=== PATIENT | male | born 1955 | race Asian ===

== ENCOUNTER 2020-12-15 11:32 | Outpatient (REF) | payer OTHER, SELFPAY ==
[2020-12-15 11:53] LABS: COVID-19 Test Negative (Negative); IDNOW Serial# 55D5AD1C
== END 2020-12-15 11:33 | disposition home or self-care (01) ==
LOC: HO.EMPCOV 11:32
PROVIDERS: Visit Provider Internal Medicine
DX: Z20.822 Contact with and (suspected) exposure to COVID-19 (principal)
CPT/HCPCS: 36415; 87635; C9803

== ENCOUNTER 2021-04-30 10:12 | Outpatient (REF) | payer MEDICARE, SELFPAY ==
[2021-04-30 10:46] LABS: MANUAL DIFF FLAG NO
[2021-04-30 10:51] LABS: Basophils Absolute Auto 0.1 X10*3/uL (0.0-0.2); Basophils Percent Auto 0.9 % (0-2); Eosinophils Absolute Auto 0.4 X10*3/uL (0.0-0.4); Eosinophils Percent Auto 6.1 % (0-4); Hematocrit 44.9 % (42-52); Imm Gran Abs Auto 0.01 X10*3/uL (0.00-0.03); Imm Gran Pct Auto 0.2 % (0.0-0.4); Lymphocytes Absolute Auto 2.3 X10*3/uL (1.2-4.9); Lymphocytes Percent Auto 41.1 % (20-40); Mean Corpuscular HGB Conc 33.4 g/dl (31.0-36.0); Mean Corpuscular Hemoglobin 30.5 pg (27.0-33.0); Mean Corpuscular Volume 91.4 fL (80-98); Mean Platelet Volume 10.2 fL (9.4-12.4); Monocytes Absolute Auto 0.7 X10*3/uL (0.1-1.2); Monocytes Percent Auto 11.4 % (2-11); Neutrophils Absolute Auto 2.3 X10*3/uL (2.0-8.3); Neutrophils Percent Auto 40.3 % (45-73); Platelet Count 185 X10*3/uL (160-400); Red Blood Count 4.91 X10*6/uL (4.60-5.80); Red Cell Distribution Width 13.6 % (11.0-16.0); White Blood Count 5.7 X10*3/uL (4.8-10.8)
[2021-04-30 11:24] LABS: Glucose Urine UA NEG (NEG); Leukocyte Esterase Urine NEG (NEG); Nitrite Urine NEG (NEG); PH 5.5 (5.0-8.0); Specific Gravity - Urine >= 1.030 (1.005-1.025); Urine Blood NEG (NEG); Urine Ketones NEG (NEG); Urine Protein NEG (NEG-TRACE)
[2021-04-30 11:28] LABS: Appearance Urine CLEAR; Color Urine YELLOW
[2021-04-30 11:37] LABS: Erythrocyte Sedimentation Rate 4 MM/HR (0-15)
[2021-04-30 11:43] LABS: Alanine Aminotransferase 21 U/L (0-40); Albumin Level 4.4 g/dL (3.5-5.0); Alkaline Phosphatase 77 U/L (39-117); Anion Gap 12 (12-20); Aspartate Amino Transferase 24 U/L (5-37); Blood Urea Nitrogen 21 mg/dL (9-16); Calcium 9.3 mg/dL (8.4-10.2); Carbon Dioxide 26 mmol/L (22-29); Chloride 107 mmol/L (96-108); Cholesterol 144 mg/dL; Estimated Glomerular Filt Rate > 60; Glucose Random 99 mg/dL (60-115); HDL Cholesterol 53 mg/dL; Iron 69 mcg/dL (45-160); LDL Cholesterol Calculated 82 mg/dl; Percent Iron Saturation 22 % (15-50); Potassium 4.6 mmol/L (3.3-5.1); Sodium 140 mmol/L (135-145); Total Iron Binding Capacity 313 mcg/dL (228-428); Total Protein 7.3 g/dL (6.5-8.0); Triglycerides 47 mg/dL; Unsaturated Iron Binding 244 ug/dL
[2021-04-30 11:57] LABS: TSH reflex Free T4 7.69 uIU/mL (0.32-4.0); Vitamin D 25-OH Total 12.7 ng/mL (>30)
[2021-04-30 12:32] LABS: Free T4 (Free Thyroxine) 0.74 ng/dL (0.71-1.85)
== END 2021-04-30 10:13 | disposition home or self-care (01) ==
LOC: HO.LAB 10:12
PROVIDERS: PCP Internal Medicine; Visit Provider Internal Medicine
DX: R53.83 Other fatigue (principal); I25.10 Atherosclerotic heart disease of native coronary artery without angina pectoris; E78.5 Hyperlipidemia, unspecified
CPT/HCPCS: 36415; 80053; 80061; 81003; 82306; 83540; 84439; 84443; 85025; 85652

== ENCOUNTER 2021-10-20 14:58 | Outpatient (REF) | payer MEDICARE, SELFPAY ==
[2021-10-20 15:28] LABS: COVID-19 Test Negative (Negative)
== END 2021-10-20 14:59 | disposition home or self-care (01) ==
LOC: HO.LAB 14:58
PROVIDERS: Visit Provider Internal Medicine
DX: Z20.822 Contact with and (suspected) exposure to COVID-19 (principal)
CPT/HCPCS: 36415; 87635; C9803

== ENCOUNTER 2022-05-02 13:40 | Outpatient (REF) | payer MEDICARE, SELFPAY ==
--- NOTE | ~2022-05-02 | MR_ITS ---
EXAMINATION: MR SHOULDER WITHOUT CONTRAST, RIGHT CLINICAL INFORMATION: Right shoulder pain. Evaluate rotator cuff tear. COMPARISON: None TECHNIQUE: MRI of the shoulder without contrast was performed on a high-field scanner. FINDINGS: ROTATOR CUFF: Mild supraspinatus tendinosis. 3 x 5 mm intrasubstance in the insertional anterior fibers. There is mild articular surface fraying more proximally in the anterior fibers. No full-thickness tear is seen. Infraspinatus, teres minor is intact. Intact subscapularis tendon. No muscle atrophy or fatty infiltration. BICEPS: Mild biceps tendinosis, with longitudinal partial tearing of the tendon as it courses in the bicipital groove with attenuated caliber. CORACOACROMIAL ARCH: The undersurface of the acromion is curved with no subacromial spur. Moderate acromioclavicular arthritis. Small fluid in the subacromial subdeltoid space. LABRUM/CAPSULE: Superior labral degeneration with free edge fraying. Small caliber posterior labrum, with posterosuperior labral degenerative fraying/tear. Inferior capsule is intact. GLENOHUMERAL JOINT/MARROW: No fracture. Subcortical cyst in the lesser tuberosity. Small joint fluid. MR/MR shoulder RT wo con IMPRESSION: 1. Mild supraspinatus tendinosis. 3 x 5 mm intrasubstance tear in the insertional anterior fibers. Mild undersurface fraying in the anterior fibers. 2. Mild biceps tendinosis with longitudinal partial tearing of the tendon as it courses in the bicipital groove. 3. Superior labral degeneration with free edge fraying. Posterior labral attenuation with posterosuperior labral degenerative fraying/tear. 4. Moderate acromioclavicular arthritis.
== END 2022-05-02 13:41 | disposition home or self-care (01) ==
LOC: HO.MRI 13:40
PROVIDERS: PCP Internal Medicine; Visit Provider Psychiatry & Neurology Neurology
DX: M75.101 Unspecified rotator cuff tear or rupture of right shoulder, not specified as traumatic (principal)
CPT/HCPCS: 73221

== ENCOUNTER 2022-07-18 11:26 | Outpatient (REF) | payer MEDICARE, SELFPAY ==
[2022-07-18 11:40] LABS: MANUAL DIFF FLAG NO
[2022-07-18 11:56] LABS: Basophils Absolute Auto 0.1 X10*3/uL (0.0-0.2); Basophils Percent Auto 1.4 % (0-2); Eosinophils Absolute Auto 0.4 X10*3/uL (0.0-0.4); Eosinophils Percent Auto 7.1 % (0-4); Hematocrit 46.3 % (42.0-52.0); Hemoglobin 15.4 g/dl (14.0-18.0); Imm Gran Abs Auto 0.01 X10*3/uL (0.00-0.03); Imm Gran Pct Auto 0.2 % (0.0-0.4); Lymphocytes Absolute Auto 2.2 X10*3/uL (1.2-4.9); Lymphocytes Percent Auto 43.6 % (20-40); Mean Corpuscular HGB Conc 33.3 g/dl (31.0-36.0); Mean Corpuscular Hemoglobin 30.6 pg (27.0-33.0); Mean Corpuscular Volume 91.9 fL (80.0-98.0); Mean Platelet Volume 9.9 fL (9.4-12.4); Monocytes Absolute Auto 0.6 X10*3/uL (0.1-1.2); Neutrophils Absolute Auto 1.7 x10*3/uL (2.0-8.3); Neutrophils Percent Auto 34.7 % (45-73); Platelet Count 183 X10*3/uL (160-400); Red Blood Count 5.04 X10*6/uL (4.60-5.80); Red Cell Distribution Width 13.5 % (11.0-16.0); White Blood Count 4.9 X10*3/uL (4.8-10.8)
[2022-07-18 12:36] LABS: Erythrocyte Sedimentation Rate 6 MM/HR (0-15)
[2022-07-18 12:37] LABS: Alanine Aminotransferase 19 U/L (0-40); Albumin Level 4.3 g/dL (3.5-5.0); Alkaline Phosphatase 79 U/L (39-117); Anion Gap 13 (12-20); Aspartate Amino Transferase 22 U/L (5-37); Bilirubin Direct 0.2 mg/dL (0.0-0.5); Bilirubin Total 0.6 mg/dL (0.0-1.0); Blood Urea Nitrogen 18 mg/dL (9-16); Calcium 9.3 mg/dL (8.4-10.2); Carbon Dioxide 27 mmol/L (22-29); Chloride 106 mmol/L (96-108); Cholesterol 162 mg/dL; Estimated Glomerular Filt Rate > 60; Glucose Random 99 mg/dL (60-115); HDL Cholesterol 49 mg/dL; LDL Cholesterol Calculated 98 mg/dl; Potassium 4.8 mmol/L (3.3-5.1); Sodium 141 mmol/L (135-145); Total Protein 7.3 g/dL (6.5-8.0); Triglycerides 75 mg/dL
[2022-07-18 12:46] LABS: Thyroid Stimulating Hormone 11.18 uIU/mL (0.32-4.0)
[2022-07-18 13:17] LABS: T4 Thyroxine 5.2 ug/dL (4.5-12.0)
[2022-07-19 12:07] LABS: Free Prostate Spec Ag 0.3 ng/mL; Percent Free Prostate Spec Ag 38 % (calc) (>25); Prostate Specific Ag Total 0.8 ng/mL (< OR = 4.0)
[2022-07-25 12:02] LABS: Testosterone, Total 978 ng/dL (250-1100)
== END 2022-07-18 11:27 | disposition home or self-care (01) ==
LOC: HO.LAB 11:26
PROVIDERS: PCP Internal Medicine; Visit Provider Internal Medicine
DX: Z12.5 Encounter for screening for malignant neoplasm of prostate (principal); E03.9 Hypothyroidism, unspecified; R42 Dizziness and giddiness; D64.9 Anemia, unspecified
CPT/HCPCS: 36415; 80053; 80061; 82248; 84154; 84403; 84436; 84443; 85025; 85652

== ENCOUNTER 2023-11-24 15:21 | Outpatient (REF) | payer OTHER, SELFPAY ==
[2023-11-24 15:31] LABS: MANUAL DIFF FLAG NO
[2023-11-24 15:40] LABS: Basophils Absolute Auto 0.1 X10*3/uL (0.0-0.2); Basophils Percent Auto 1.3 % (0-2); Eosinophils Absolute Auto 0.6 X10*3/uL (0.0-0.4); Eosinophils Percent Auto 9.2 % (0-4); Hematocrit 45.7 % (42.0-52.0); Hemoglobin 15.4 g/dl (14.0-18.0); Imm Gran Abs Auto 0.01 X10*3/uL (0.00-0.03); Imm Gran Pct Auto 0.2 % (0.0-0.4); Lymphocytes Absolute Auto 2.2 X10*3/uL (1.2-4.9); Lymphocytes Percent Auto 36.6 % (20-40); Mean Corpuscular HGB Conc 33.7 g/dl (31.0-36.0); Mean Corpuscular Hemoglobin 31.1 pg (27.0-33.0); Mean Corpuscular Volume 92.3 fL (80.0-98.0); Mean Platelet Volume 10.5 fL (9.4-12.4); Monocytes Absolute Auto 0.7 X10*3/uL (0.1-1.2); Monocytes Percent Auto 11.4 % (2-11); Neutrophils Absolute Auto 2.5 x10*3/uL (2.0-8.3); Neutrophils Percent Auto 41.3 % (45-73); Platelet Count 152 X10*3/uL (160-400); Red Blood Count 4.95 X10*6/uL (4.60-5.80); Red Cell Distribution Width 13.5 % (11.0-16.0)
[2023-11-24 16:03] LABS: Alanine Aminotransferase 20 U/L (0-40); Albumin Level 4.4 g/dL (3.5-5.0); Alkaline Phosphatase 75 U/L (39-117); Anion Gap 10 (12-20); Aspartate Amino Transferase 21 U/L (5-37); Bilirubin Total 1.1 mg/dL (0.0-1.0); Blood Urea Nitrogen 17 mg/dL (9-16); Calcium 9.5 mg/dL (8.4-10.2); Carbon Dioxide 26 mmol/L (22-29); Chloride 107 mmol/L (96-108); Cholesterol 145 mg/dL (<200); Estimated Glomerular Filt Rate > 60; Glucose Random 89 mg/dL (60-115); HDL Cholesterol 51 mg/dL (>40); LDL Cholesterol Calculated 81 mg/dL (<100); Potassium 4.3 mmol/L (3.3-5.1); Sodium 139 mmol/L (135-145); Total Protein 7.6 g/dL (6.5-8.0); Triglycerides 67 mg/dL (<150)
[2023-11-24 16:24] LABS: Prostate Specific Antigen 0.93 ng/mL (<0.05-4.0)
[2023-12-02 17:24] LABS: Testosterone, Free 95.7 pg/mL (35.0-155.0); Testosterone, Total 679 ng/dL (250-1100)
== END 2023-11-24 15:22 | disposition home or self-care (01) ==
LOC: HO.LAB 15:21
PROVIDERS: PCP Internal Medicine; Visit Provider Internal Medicine
DX: Z12.5 Encounter for screening for malignant neoplasm of prostate (principal); I25.10 Atherosclerotic heart disease of native coronary artery without angina pectoris; E78.5 Hyperlipidemia, unspecified
CPT/HCPCS: 36415; 80053; 80061; 84153; 84402; 84403; 85025

== ENCOUNTER 2023-12-28 11:24 | Outpatient (REF) | payer OTHER, SELFPAY ==
[2023-12-28 13:08] LABS: T4 Thyroxine 5.2 ug/dL (4.5-12.0); Thyroid Stimulating Hormone 10.51 uIU/mL (0.32-4.0)
[2023-12-29 10:28] LABS: Triiodothyronine T3 Free 3.5 pg/mL (2.3-4.2)
== END 2023-12-28 11:25 | disposition home or self-care (01) ==
LOC: HO.LAB 11:24
PROVIDERS: PCP Internal Medicine; Visit Provider Psychiatry & Neurology Neurology
DX: E03.9 Hypothyroidism, unspecified (principal)
CPT/HCPCS: 36415; 84436; 84443; 84481

== ENCOUNTER 2024-01-01 06:42 | Day surgery (SDC) | payer OTHER, SELFPAY ==
--- NOTE | 2023-12-29 09:18 | HO.ANESPROP2 ---
HPI - Anesthesia Eval Consult details Narrative: 68yo M for Upper Endoscopy with Balloon Dilitation, Colonoscopy Meds Allergies Allergy/AdvReac Type Severity Reaction Status Date / Time No Known Allergies Allergy Unverified 08/13/20 15:31 [No Known Allergies*] Exam Pertinent Lab Results Pertinent Lab Results: Laboratory Tests 11/24/23 15:30 WBC 6.0 Hgb 15.4 Hct 45.7 Plt Count 152 L Sodium 139 Potassium 4.3 Chloride 107 Carbon Dioxide 26 BUN 17 H Creatinine 0.97
[2024-01-01 06:50] VITALS: BMI 27.5
[2024-01-01 07:06] VITALS: BP 137/77; PULSE 66; RESP 16; TEMP 36.4; O2SAT 96
[2024-01-01] MEDS: Lactated Ringers 1,000 ML 80 ML IVCONT (07:12)
--- NOTE | 2024-01-01 07:22 | HO.ANESPROP2 ---
[facility] Past Medical History Medical History Arthritis BPH (benign prostatic hyperplasia) Hyperlipidemia CAD (coronary artery disease) Functional capacity: independent ambulation Family History Family history of problems with anesthesia: No Surgical History Surgical History Hx of colonoscopy History of endoscopy History of bilateral knee arthroplasty History of Problems with Anesthesia: No Social History Social History Patient Tobacco Use Status: Never used Tobacco Use of substances other than those prescribed or required for medical reasons: No Are you DNR?: No Advance Directives: No Advance Directives Information Provided: Yes Meds Allergies Allergy/AdvReac Type Severity Reaction Status Date / Time No Known Allergies Allergy Verified 01/01/24 06:53 [No Known Allergies*] Active Medications: Current Medications Lactated Ringer's (Lr) 1,000 mls @ 80 mls/hr IVCONT .[id number] JERRY Last Admin: 01/01/24 07:12 Dose: 80 mls/hr Sodium Biphosphate/Sodium Phosphate (Sodium Phosphate,Villalba-Dibasic 133 Ml Enema) 133 ml MS ONCE PRN PRN Reason: Poor Colonoscopy Prep Results Home Medications Medication Instructions Recorded Confirmed Last Taken Type atorvastatin 20 mg tablet 20 mg PO DAILY 01/01/24 Unknown History omeprazole 20 mg capsule,delayed 20 mg PO QAM 01/01/24 Unknown History release tamsulosin 0.4 mg capsule 0.4 mg PO DAILY 01/01/24 Unknown History Exam Height,Weight and Vital Signs: Height 5 ft 9 in Weight 84.425 kg Last Vital Signs Temp 97.6 F 01/01/24 07:06 Pulse 66 01/01/24 07:06 Resp 16 01/01/24 07:06 BP 137/77 01/01/24 07:06 Pulse Ox 96 01/01/24 07:06 O2 Del Method Room Air 01/01/24 07:06 Airway Mallampati Class: III TM Dist: >3cm Neck ROM: Full Heart: RRR Lungs: CTA Assessment and Plan Assessment Anesthesia Assessment: Anesthesia Plan Discussed Final Anesthetic Review Family History of Problems with Anesthesia: No History of Problems with Anesthesia: No NPO: Yes ASA Class: II Final Preanesthetic Review: Meds/Allgs Chart Reviewed, Consent Obtained/Reviewed and Anes Risks/Benef Reviewed Patient Risk: Low Procedure Risk: Low Anesthetic Plan Anesthetic Plan: MAC: Disposition: Standard PACU
[2024-01-01 08:46] VITALS: BP 96/61; PULSE 69; RESP 16; TEMP 36.1; O2SAT 96
--- NOTE | 2024-01-01 08:48 | PM.OP ---
Brief Operative Note Date of Service: 01/01/24 Pre-op diagnosis: Dysphagia, Screening Post-op diagnosis: other (Gastritis, Colon polyps) Procedure: Colonoscopy to the cecum and TI with bx/removal of polyps, EGD with bx and Balloon dilation of EG [place]unction with an 18mm Balloon Surgeon: Marco Tang MD Anesthesia: MAC Was an Hardwood Finisher used for this Procedure?: No Estimated blood loss (mL): 2.0 Pathology: other (A. Ascending colon polyp B. Polyp at 40cm C. Gastric antrum D. Gastric polyps E. Esophagus 20-25cm) Condition: stable Disposition: PACU
[2024-01-01 09:01] VITALS: BP 122/70; PULSE 57; RESP 16; O2SAT 95
[2024-01-01 09:16] VITALS: BP 131/80; PULSE 67; RESP 16; TEMP 36.1; O2SAT 98
--- NOTE | 2024-01-01 09:40 | PC.NURSE ---
dr. hilliard stated that he would call in a prescription for tylenol and motrin per patient request. 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
--- NOTE | 2024-01-01 10:27 | HO.POSTANES ---
Post Anesthesia Evaluation Post Anesthesia Evaluation Date of Service: 01/01/24 Vital Signs: Vital Signs Temp Pulse Resp BP Pulse Ox O2 Del Method 01/01/24 09:16 97 F 67 16 131/80 98 Room Air 01/01/24 09:01 57 16 122/70 95 Room Air 01/01/24 08:46 97 F 69 16 96/61 96 Room Air 01/01/24 07:06 97.6 F 66 16 137/77 96 Room Air Anesthesia: Monitored Mental Status: Awake (b) Pain Control: Satisfactory Nausea/Vomiting: None Hydration: Adequate Anesthesia-Related Issues: No Anes. Related Issues
--- NOTE | 2024-01-01 10:30 | OP_ITS ---
DATE OF SERVICE: 01/01/2024 SURGEON: Marco Tang MD INDICATIONS: The patient presents for evaluation of gastroesophageal reflux, intermittent dysphagia, personal history of a tubular adenoma of the colon, and colorectal cancer screening. Full consent was obtained from him for this, including risks of bleeding and perforation. PREOPERATIVE DIAGNOSIS: POSTOPERATIVE DIAGNOSIS: PROCEDURE PERFORMED: Esophagogastroduodenoscopy with balloon dilation and biopsies, and colonoscopy to the cecum and terminal ileum with biopsy and removal of polyps. ESTIMATED BLOOD LOSS: COMPLICATIONS: ANESTHESIA: Monitored anesthesia care. ASSISTANTS: SPECIMENS: PREOPERATIVE DIAGNOSES: Gastroesophageal reflux, dysphagia, personal history of a tubular adenoma of the colon and colorectal cancer screening. POSTOPERATIVE DIAGNOSES: Gastroesophageal reflux, dysphagia, personal history of a tubular adenoma of the colon, colorectal cancer screening, colon polyps, sigmoid diverticulosis, internal hemorrhoids, mild gastritis, and gastric polyps. DESCRIPTION OF PROCEDURE: The patient was placed in the left lateral decubitus position. The digital rectal exam revealed no abnormalities. The Olympus video pediatric colonoscope was entered into the rectum and advanced easily to the cecum. Once in the cecum, I did identify normal-appearing cecal pouch with appendiceal orifice and a normal-appearing ileocecal valve. The terminal ileum was cannulated and appeared normal. The scope was withdrawn back in the colon. The entire cecum and ileocecal valve appeared normal. The scope was slowly withdrawn assessing all mucosal surfaces carefully. Preparation was excellent. In the proximal ascending colon and at 40 cm were flat, less than 5 mm polyps, which were each biopsied and completely removed with a cold biopsy forceps. I did not visualize any other polyps, colitis, or angiodysplasia. There was a mild amount of sigmoid diverticulosis. In the rectum, the scope was retroflexed visualizing internal hemorrhoids, but no other pathology. The rectal mucosa appeared normal. The scope was straightened and withdrawn from the patient. He was turned around for the upper endoscopy. The Olympus video gastroscope was passed in the posterior oropharynx and upper esophagus under direct vision. The scope was passed slowly into the distal esophagus. The gastroesophageal junction appeared normal at 39 cm. There was no sign of any esophagitis, Contreras's esophagus, stricture, nor esophageal ring. The scope easily entered the stomach. There was a minimal hiatal hernia. The scope was advanced to the pylorus and the duodenum was cannulated to the descending portion. The duodenum including the bulb appeared normal other than some very minimal changes of erythema in the duodenal bulb. There was no ulceration or mass. The scope was withdrawn back to the stomach. The gastric antrum did have some changes of erythema, but no erosions or ulceration. There was good peristalsis. The scope was retroflexed visualizing the proximal stomach carefully, which appeared normal, without any mass or ulceration, other than some hyperplastic appearing gastric polyps. The scope was straightened. Biopsies were obtained from the gastric antrum. Biopsies were also obtained from two of the gastric polyps. The scope was withdrawn back to the esophagus. Given his symptoms, I did use a [employer] incremental dilating balloon to dilate the gastroesophageal junction to 18 mm for 60 seconds at the recommended pressure. Post-dilation, there was no appreciable heme noted. The scope was withdrawn. The remainder of the esophagus appeared normal. I did not appreciate any esophageal rings in the proximal esophagus. Biopsies were obtained between 20 and 25 cm. The scope was withdrawn from the patient. He tolerated the procedures well and was returned to the recovery area in stable condition. IMPRESSION: 1. Colon polyps. 2. Diverticulosis. 3. Internal hemorrhoids. 4. Minimal gastritis and duodenitis. 5. Gastric polyps. 6. Rule out eosinophilic esophagitis. PLAN: The results of the biopsies will be checked. He was advised not to use any aspirin and NSAIDs for 1 week. He will continue omeprazole if that continues to help his dysphagia. I suspect he might be having some esophageal reflux and/or spasm of the esophagus. He also describes that he tends to eat fast and he was reminded to eat slowly and carefully as well in regard to the dysphagia. He was also advised not to eat for several hours before bedtime to prevent any nocturnal reflux. He should undergo repeat colonoscopy in 5 years. He will otherwise see me on a p.r.n. basis. This has been discussed with his . MD MAURICE Vera/GILMAR / [id number] MTDD
== END 2024-01-01 09:42 | disposition home or self-care (01) ==
PROVIDERS: PCP Internal Medicine; Visit Provider Internal Medicine
PROC: (CPT 45380; principal; 2024-01-01 07:30)
PROC: 0DJD8ZZ Inspection of Lower Intestinal Tract, Via Natural or Artificial Opening Endoscopic (ICD-10-PCS; CPT 45378; 2024-01-01 07:30)
DX: Z12.11 Encounter for screening for malignant neoplasm of colon (principal); Z86.010 Personal history of colon polyps; D12.2 Benign neoplasm of ascending colon; D12.5 Benign neoplasm of sigmoid colon; K57.30 Diverticulosis of large intestine without perforation or abscess without bleeding; K64.8 Other hemorrhoids; R13.19 Other dysphagia; K21.9 Gastro-esophageal reflux disease without esophagitis; K29.60 Other gastritis without bleeding; K29.80 Duodenitis without bleeding; K31.7 Polyp of stomach and duodenum; K44.9 Diaphragmatic hernia without obstruction or gangrene; I25.10 Atherosclerotic heart disease of native coronary artery without angina pectoris; Z95.5 Presence of coronary angioplasty implant and graft; E78.5 Hyperlipidemia, unspecified; N40.0 Benign prostatic hyperplasia without lower urinary tract symptoms; Z87.442 Personal history of urinary calculi; Z79.899 Other long term (current) drug therapy
CPT/HCPCS: 45380; 43249; 43239; 88305; 88313; 88342; C1726; J1596; J2704